=== PATIENT | male | born 1995 | race Two or more races ===

== ENCOUNTER 2024-05-20 18:12 | Emergency (ER) | payer OTHER ==
[2024-05-20 18:32] VITALS: BP 130/76; PULSE 72; RESP 16; TEMP 97.6; BMI 28.6
[2024-05-20 19:40] LABS: URINE APPEARANCE CLEAR; URINE BILIRUBIN NEGATIVE (NEGATIVE); URINE COLOR YELLOW; URINE GLUCOSE (UA) NEGATIVE (NEGATIVE); URINE KETONE NEGATIVE (NEGATIVE); URINE LEUK ESTERASE NEGATIVE (NEGATIVE); URINE NITRITE NEGATIVE (NEGATIVE); URINE PROTEIN NEGATIVE (NEGATIVE)
[2024-05-20 21:03] LABS: HIV INTERPRETATION NEGATIVE (NEGATIVE)
[2024-05-20] MEDS: METHOCARBAMOL 500 MG TABLET PO ONE (21:10)
[2024-05-20] MEDS: IBUPROFEN 600 MG TABLET (FP) PO ONE (21:10)
== END 2024-05-20 20:25 | disposition home or self-care (01) ==
LOC: JER 18:12
DX: M54.50 Low back pain, unspecified (principal); G89.29 Other chronic pain
CPT/HCPCS: 36415; 81003; 86803; 87086; 87389; 99283-25